=== PATIENT | female | born 1975 | race African-American/Black ===

== ENCOUNTER 2017-01-29 12:18 | Emergency (ER) | payer SELFPAY ==
--- NOTE | 2017-01-29 12:45 | ER Document Report ---
ED Medical Screen (RME) - General Chief Complaint: Chest Pain Stated Complaint: CHEST PAIN/RIGHT BREAST PAIN Time Seen by Provider: 01/29/17 12:43 Notes: Patient states that she came in because her encouraged her. She states her is concerned about the amount of time that she is tired and sleeping. She also states that she has been having both left and right-sided chest pain for the last week. She states that she has not been able to monitor her blood sugars because her meter is broken. TRAVEL OUTSIDE OF THE [place] IN LAST 30 DAYS: No - Related Data Allergies/Adverse Reactions: ampicillin Allergy (Verified 01/29/17 12:33) Penicillins Allergy (Verified 01/29/17 12:24) Past Medical History - Social History Frequency of alcohol use: None Drug Abuse: None - Past Medical History Cardiac Medical History: Reports: Hx Hypercholesterolemia, Hx Hypertension Endocrine Medical History: Reports: Hx Diabetes Mellitus Type 2 Renal/ Medical History: Denies: Hx Peritoneal Dialysis Past Surgical History: Reports: Hx Hysterectomy, Hx Tonsillectomy, Hx Tubal Ligation - Immunizations Hx Diphtheria, Pertussis, Tetanus Vaccination: Yes Physical Exam - Vital signs Vitals: Temp Pulse Resp BP Pulse Ox 97.5 F 93 18 119/90 H 98 01/29/17 12:23 01/29/17 12:23 01/29/17 12:23 01/29/17 12:23 01/29/17 12:23 Course - Vital Signs Vital signs: Temp Pulse Resp BP Pulse Ox 97.5 F 93 18 119/90 H 98 01/29/17 12:23 01/29/17 12:23 01/29/17 12:23 01/29/17 12:23 01/29/17 12:23
[2017-01-29 13:35] LABS: ABSOLUTE EOSINOPHILS # (AUTO) 0.2 10^3/uL (0.0-0.6); ABSOLUTE LYMPHOCYTES (AUTO) 2.3 10^3/uL (0.5-4.7); ABSOLUTE MONOCYTES (AUTO) 0.3 10^3/uL (0.1-1.4); ABSOLUTE NEUT (AUTO) 2.4 10^3/uL (1.7-8.2); BASOPHILS % (AUTO) 0.5 % (0-2); EOSINOPHILS % (AUTO) 4.5 % (0-6); HEMOGLOBIN 15.7 g/dL (12.0-15.5); HGB HCT DIFFERENCE 2.1; LYMPHOCYTES % (AUTO) 43.6 % (13-45); MEAN CORPUSCULAR HEMOGLOBIN 28.9 pg (27.0-33.4); MEAN CORPUSCULAR VOLUME 83 fl (80-97); RED BLOOD COUNT 5.44 10^6/uL (3.72-5.28); RED CELL DISTRIBUTION WIDTH 13.9 % (11.5-14.0); SEGMENTED NEUTROPHILS % (AUTO) 45.4 % (42-78); WHITE BLOOD COUNT 5.3 10^3/uL (4.0-10.5)
[2017-01-29 13:57] LABS: ALANINE AMINOTRANSFERASE 26 U/L (9-52); ALBUMIN 4.4 g/dL (3.5-5.0); ALKALINE PHOSPHATASE 109 U/L (38-126); ANION GAP 17 (5-19); ASPARTATE AMINO TRANSFERASE 17 U/L (14-36); BILIRUBIN,DIRECT 0.5 mg/dL (0.0-0.4); BILIRUBIN,TOTAL 0.7 mg/dL (0.2-1.3); BLOOD UREA NITROGEN 14 mg/dL (7-20); CALCIUM 9.9 mg/dL (8.4-10.2); CARBON DIOXIDE 24 mmol/L (22-30); CHLORIDE 93 mmol/L (98-107); CREATININE RESULT 0.82 mg/dL (0.52-1.25); POTASSIUM 3.6 mmol/L (3.6-5.0); SODIUM 133.6 mmol/L (137-145); TOTAL PROTEIN 8.1 g/dL (6.3-8.2)
[2017-01-29 14:09] LABS: GLUCOSE 562 mg/dL (75-110)
--- NOTE | 2017-01-29 14:12 | RADIOLOGY REPORT (SQ) ---
EXAM DESCRIPTION: CHEST PA/LAT COMPLETED DATE/TIME: 01/29/2017 1:19 pm REASON FOR STUDY: cp COMPARISON: 09/26/2015 TECHNIQUE: Frontal and lateral radiographic views of the chest acquired. NUMBER OF VIEWS: Two view. LIMITATIONS: None. FINDINGS: LUNGS AND PLEURA: No opacities, masses or pneumothorax. No pleural effusion. MEDIASTINUM AND HILAR STRUCTURES: No masses or contour abnormalities. HEART AND VASCULAR STRUCTURES: Heart normal size. No evidence for failure. BONES: No acute findings. HARDWARE: None in the chest. OTHER: No other significant finding. IMPRESSION: NO SIGNIFICANT RADIOGRAPHIC FINDING IN THE CHEST. TECHNICAL DOCUMENTATION: JOB ID: [id number] [employer]- All Rights Reserved
[2017-01-29 14:51] LABS: APPEARANCE,URINE CLEAR; BILIRUBIN,URINE NEGATIVE (NEGATIVE); GLUCOSE, URINE >=500 mg/dL (NEGATIVE); KETONES,URINE NEGATIVE (NEGATIVE); LEUKOCYTE ESTERASE,URINE NEGATIVE (NEGATIVE); NITRITE,URINE NEGATIVE (NEGATIVE); PROTEIN,URINE NEGATIVE (NEGATIVE); URINE SPECIFIC GRAVITY 1.028; UROBILINOGEN,URINE NEGATIVE mg/dL (<2.0)
--- NOTE | 2017-01-29 14:53 | ER Document Report ---
ED General - General Mode of Arrival: Ambulatory Information source: Patient TRAVEL OUTSIDE OF THE [place] IN LAST 30 DAYS: No - HPI Onset: Other - see narrative Onset/Duration: Persistent Quality of pain: Achy Similar symptoms previously: Yes <ALEXY ALAN - Last Filed: 01/29/17 14:53> <RASHI GILMAN - Last Filed: 01/29/17 17:26> - General Chief Complaint: Chest Pain Stated Complaint: CHEST PAIN/RIGHT BREAST PAIN Time Seen by Provider: 01/29/17 12:43 Notes: Patient is a 41-year-old female who presents to emergency department today with complaints of "breast pain". Patient states she has been having this pain for approximately 2 weeks and the at bedside states that the patient has been having the symptoms for approximately a year. Patient is a type II diabetic but is only currently taking Metformin. Patient was on metformin along with glipizide which were controlling her sugars well however she states her PCP changed the glipizide to free samples of Januvia and when the Januvia ran out she has not been put back on any other diabetes medications. Patient states she does not check her sugars frequently. (ALEXY ALAN) - Related Data Allergies/Adverse Reactions: ampicillin Allergy (Verified 01/29/17 12:33) Penicillins Allergy (Verified 01/29/17 12:24) Past Medical History - General Information source: Patient, [facility] Records - Social History Smoking Status: Never Smoker Cigarette use (# per day): No Frequency of alcohol use: None Drug Abuse: None Lives with: Family Family History: Reviewed & Not Pertinent Patient has suicidal ideation: No Patient has homicidal ideation: No - Past Medical History Cardiac Medical History: Reports: Hx Hypercholesterolemia, Hx Hypertension Endocrine Medical History: Reports: Hx Diabetes Mellitus Type 2 Past Surgical History: Reports: Hx Hysterectomy, Hx Tonsillectomy, Hx Tubal Ligation - Immunizations Hx Diphtheria, Pertussis, Tetanus Vaccination: Yes <ALEXY ALAN - Last Filed: 01/29/17 14:53> Review of Systems - Review of Systems Constitutional: See HPI, Other - feeling very worn out, sleeping almost all day EENT: No symptoms reported Cardiovascular: No symptoms reported Respiratory: No symptoms reported Gastrointestinal: No symptoms reported Genitourinary: No symptoms reported Female Genitourinary: No symptoms reported Musculoskeletal: See HPI, Other - right sided rib/breast pain Skin: No symptoms reported Hematologic/Lymphatic: No symptoms reported Neurological/Psychological: No symptoms reported -: Yes All other systems reviewed and negative <ALEXY ALAN - Last Filed: 01/29/17 14:53> Physical Exam <ALEXY ALAN - Last Filed: 01/29/17 14:53> <RASHI GILMAN - Last Filed: 01/29/17 17:26> - Vital signs Vitals: Temp Pulse Resp BP Pulse Ox 97.5 F 93 18 119/90 H 98 01/29/17 12:23 01/29/17 12:23 01/29/17 12:23 01/29/17 12:23 01/29/17 12:23 - Notes Notes: Physical Exam: General: Alert, appears well. HEENT: Normocephalic. Atraumatic. PERRL. Extraocular movements intact. Oropharynx clear. Neck: Supple. Non-tender. Respiratory: No respiratory distress. Clear and equal breath sounds bilaterally. Bilaterally chest wall tenderness with palpation under the breasts bilaterally. Cardiovascular: Regular rate and rhythm. Abdominal: Normal Inspection. Non-tender. No distension. Normal Bowel Sounds. Back: Non-tender. No deformity or step off. Extremities: Moves all four extremities. Upper extremities: Normal inspection. Normal ROM. Lower extremities: Normal inspection. No edema. Normal ROM. Neurological: Normal cognition. AAOx4. Normal speech. Psychological: Normal affect. Normal Mood. Skin: Warm. Dry. Normal color. (DAYANNA,ALEXY) Course - Laboratory Result Diagrams: 01/29/17 13:05 01/29/17 13:05 <DAYANNAALEXY - Last Filed: 01/29/17 14:53> - Laboratory Result Diagrams: 01/29/17 13:05 01/29/17 13:05 <RASHI GILMAN - Last Filed: 01/29/17 17:26> - Vital Signs Vital signs: Temp Pulse Resp BP Pulse Ox 97.5 F 93 18 119/90 H 98 01/29/17 12:23 01/29/17 12:23 01/29/17 12:23 01/29/17 12:23 01/29/17 12:23 - Laboratory Laboratory results interpreted by me: 01/29/17 01/29/1717 13:05 13:05 13:05 RBC 5.44 H Hgb 15.7 H Sodium 133.6 L Chloride 93 L Glucose 562 H* POC Glucose Hemoglobin A1c % Direct Bilirubin 0.5 H Urine Glucose (UA) >=500 H Urine Ascorbic Acid 20 H 01/29/17 01/29/17 13:05 17:02 RBC Hgb Sodium Chloride Glucose POC Glucose 269 H Hemoglobin A1c % 13.9 H Direct Bilirubin Urine Glucose (UA) Urine Ascorbic Acid Discharge <ALEXY ALAN - Last Filed: 01/29/17 14:53> <RASHI GILMAN - Last Filed: 01/29/17 17:26> - Discharge Clinical Impression: Poorly controlled diabetes mellitus, Chest wall pain Hyperglycemia due to type 2 diabetes mellitus 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 This is often caused by straining the muscles or joints in the chest during physical activity, direct trauma, coughing, or vigorous vomiting. Persons with arthritis are especially prone to this type of pain, due to inflammation of the cartilage joints near the breast bone. Occasionally, no cause can be found. Rest from strenuous physical activity. This kind of chest pain is usually made worse by movement of the chest. If the pain is new, and seems to be due to muscle strain, cold packs can help. Otherwise, apply gentle warmth to the painful area for 15 minutes every hour or two. You should contact the doctor immediately if things change. Further evaluation is needed if you develop a fever or cough, if the nature of the pain changes, or if you become short of breath. Hyperglycemia (High Blood Sugar): You have an abnormally high blood sugar. The medication you are taking is not controlling your blood sugars. You will be scheduled for further evaluation. It's very important that you follow through, to see if the blood sugar returns to normal levels. Uncontrolled high blood sugar leads to early heart disease, strokes, nerve damage, eye damage, and kidney damage. Call the physician if there is faintness, excess sleepiness, or very rapid breathing. ADD THE GLIPIZIDE TO THE METFORMIN YOUR ARE TAKING. CHECK YOUR BLOOD SUGARS REGULARLY. TAKE TYLENOL FOR THE CHEST WALL PAIN IF NEEDED. FOLLOW UP WITH A LOCAL MEDICAL DOCTOR TO MANAGE YOUR DIABETES--TAKE COPIES OF THE LAB WORK. RETURN TO THE EMERGENCY ROOM IF ANY NEW OR WORSENING SYMPTOMS. Prescriptions: Glipizide [Glucotrol 10 mg Tablet] 10 mg PO DAILY #30 tablet Scribe Attestation: 01/29/17 17:23 I personally performed the services described in the documentation, reviewed and edited the documentation which was dictated to the scribe in my presence, and it accurately records my words and actions. (RASHI GILMAN) Scribe Documentation - Scribe Written by Oswaldo:: Oswaldo Clifford, 01/29/2017 1507 acting as scribe for :: Dinesh <ALEXY ALAN - Last Filed: 01/29/17 14:53>
[2017-01-29] MEDS ORDERED: INSULIN REG, HUMAN 100 UNIT/ML 3 ML VIAL (PYX) IV ONE (14:54)
[2017-01-29] MEDS ORDERED: NORMAL SALINE 1000 ML 1,000 ML IV ONE (14:55)
[2017-01-29] MEDS ORDERED: POTASSIUM CHLORIDE 20 MEQ/15 ML UDCUP PO ONE (14:55)
[2017-01-29 18:18] VITALS: BP 121/85
--- NOTE | 2017-01-29 23:50 | EKG REPORT ---
SEVERITY:- ABNORMAL ECG - SINUS TACHYCARDIA LEFT ANTERIOR FASCICULAR BLOCK CONSIDER ANTERIOR INFARCT ABNORMAL T, CONSIDER ISCHEMIA, INFERIOR LEADS BORDERLINE PROLONGED QT INTERVAL : Confirmed by: Wilder Flores 29-Jan-2017 23:49:13
== END 2017-01-29 18:20 | disposition home or self-care (01) ==
LOC: ER 12:18
DX: E11.65 Type 2 diabetes mellitus with hyperglycemia (principal); R07.89 Other chest pain; N64.4 Mastodynia; Z79.899 Other long term (current) drug therapy
CPT/HCPCS: 93005; 99285; 36415; 82962; 85025; 81025; 80053; 81001; 84484; 83036; 71020; 93010; J1815; J7030

== ENCOUNTER 2017-06-01 13:32 | Emergency (ER) | payer SELFPAY ==
[2017-06-01] MEDS ORDERED: ONDANSETRON 4 MG TAB.RAPDIS PO ONE (14:16)
[2017-06-01] MEDS ORDERED: OXYCODONE-ACETAMINOPHEN 5-325 MG TABLET PO ONE ×2 (14:16→15:23)
--- NOTE | 2017-06-01 14:18 | ER Document Report ---
ED Medical Screen (RME) - General Chief Complaint: Flank Pain Stated Complaint: BACK PAIN, NAUSEA Time Seen by Provider: 06/01/17 14:14 Notes: 41-year-old female patient with [id number] diabetes reports right flank pain going into the right groin area. Burn some with urination. She has urine frequency but is on a diuretic. She reports fever with some nausea. There is no history of kidney stones. I have greeted and performed a rapid initial assessment of this patient. A comprehensive ED assessment and evaluation of the patient, analysis of test results and completion of the medical decision making process will be conducted by additional ED providers. TRAVEL OUTSIDE OF THE [place] IN LAST 30 DAYS: No - Related Data Allergies/Adverse Reactions: ampicillin Allergy (Verified 01/29/17 12:33) Penicillins Allergy (Verified 01/29/17 12:24) Home Medications: Current Home Medications Hydrochlorothiazide 1 tab PO DAILY 06/01/17 [History] Metformin HCl [Metformin HCl ER] 1 tab PO BID 06/01/17 [History] Past Medical History - Social History Frequency of alcohol use: None Drug Abuse: None - Past Medical History Cardiac Medical History: Reports: Hx Hypercholesterolemia, Hx Hypertension Endocrine Medical History: Reports: Hx Diabetes Mellitus Type 2 Renal/ Medical History: Denies: Hx Peritoneal Dialysis Past Surgical History: Reports: Hx Hysterectomy, Hx Tonsillectomy, Hx Tubal Ligation - Immunizations Hx Diphtheria, Pertussis, Tetanus Vaccination: Yes Physical Exam - Vital signs Vitals: Pulse BP 103 H 143/103 H 06/01/17 14:05 06/01/17 14:05 Course - Vital Signs Vital signs: Temp Pulse Resp BP Pulse Ox 98.9 F 103 H 18 135/104 H 97 06/01/17 14:06 06/01/17 14:06 06/01/17 14:06 06/01/17 14:06 06/01/17 14:06
--- NOTE | 2017-06-01 14:46 | ER Document Report ---
ED General - General Chief Complaint: Flank Pain Stated Complaint: BACK PAIN, NAUSEA Time Seen by Provider: 06/01/17 14:14 Mode of Arrival: Ambulatory Information source: Patient TRAVEL OUTSIDE OF THE [place] IN LAST 30 DAYS: No - Related Data Allergies/Adverse Reactions: ampicillin Allergy (Verified 01/29/17 12:33) Penicillins Allergy (Verified 01/29/17 12:24) Home Medications: Current Home Medications Hydrochlorothiazide 1 tab PO DAILY 06/01/17 [History] Metformin HCl [Metformin HCl ER] 1 tab PO BID 06/01/17 [History] Past Medical History - Social History Smoking Status: Never Smoker Frequency of alcohol use: None Drug Abuse: None Family History: Reviewed & Not Pertinent Patient has suicidal ideation: No Patient has homicidal ideation: No - Past Medical History Cardiac Medical History: Reports: Hx Hypercholesterolemia, Hx Hypertension Endocrine Medical History: Reports: Hx Diabetes Mellitus Type 2 Renal/ Medical History: Denies: Hx Peritoneal Dialysis Past Surgical History: Reports: Hx Hysterectomy, Hx Tonsillectomy, Hx Tubal Ligation - Immunizations Hx Diphtheria, Pertussis, Tetanus Vaccination: Yes Physical Exam - Vital signs Vitals: Pulse BP 103 H 143/103 H 06/01/17 14:05 06/01/17 14:05 Interpretation: Hypertensive, Tachycardic. No: Tachypneic Course - Re-evaluation Re-evalutation: 06/01/17 17:22 Patient states that she is feeling some better. Results of CT scan and laboratory testing discussed. Abdominal ultrasound scan still pending. - Vital Signs Vital signs: Temp Pulse Resp BP Pulse Ox 98.9 F 103 H 18 135/104 H 97 06/01/17 14:06 06/01/17 14:06 06/01/17 14:06 06/01/17 14:06 06/01/17 14:06 - Laboratory Result Diagrams: 06/01/17 15:20 06/01/17 15:20 Laboratory results interpreted by me: 06/01/17 06/01/17 14:24 15:20 Sodium 136.3 L Glucose 304 H Urine Glucose (UA) >=500 H Discharge - Discharge Clinical Impression: Colitis Cholelithiasis Qualifiers: Cholelithiasis location: gallbladder Cholecystitis presence: without cholecystitis Biliary obstruction: without biliary obstruction Qualified Code(s) : K80.20 - Calculus of gallbladder without cholecystitis without obstruction Condition: Stable Disposition: HOME, SELF-CARE Instructions: Colitis, Nonspecific ([facility]), Gallbladder Disease ([facility]) Additional Instructions: BLAND DIET, AVOID GREASY OR SPICY FOODS. MEDS DIRECTED. FOLLOW UP WITH YOUR PRIMARY CARE PROVIDER OR RETURN TO E.R.IF YOU START GETTING WORSE IN ANY WAY. Prescriptions: Levofloxacin [Levaquin 750 mg Tablet] 750 mg PO DAILY #14 tab Metronidazole 500 mg PO Q6 #28 tablet
[2017-06-01 14:55] LABS: APPEARANCE,URINE CLEAR; BILIRUBIN,URINE NEGATIVE (NEGATIVE); COLOR,URINE STRAW; GLUCOSE, URINE >=500 mg/dL (NEGATIVE); KETONES,URINE NEGATIVE (NEGATIVE); LEUKOCYTE ESTERASE,URINE NEGATIVE (NEGATIVE); NITRITE,URINE NEGATIVE (NEGATIVE); PROTEIN,URINE NEGATIVE (NEGATIVE); URINE SPECIFIC GRAVITY 1.024; UROBILINOGEN,URINE NEGATIVE mg/dL (<2.0)
[2017-06-01 15:36] LABS: ABSOLUTE BASOPHILS # (AUTO) 0.1 10^3/uL (0.0-0.2); ABSOLUTE EOSINOPHILS # (AUTO) 0.4 10^3/uL (0.0-0.6); ABSOLUTE LYMPHOCYTES (AUTO) 2.6 10^3/uL (0.5-4.7); ABSOLUTE MONOCYTES (AUTO) 0.4 10^3/uL (0.1-1.4); ABSOLUTE NEUT (AUTO) 3.6 10^3/uL (1.7-8.2); BASOPHILS % (AUTO) 1.3 % (0-2); EOSINOPHILS % (AUTO) 5.6 % (0-6); HEMATOCRIT 42.6 % (36.0-47.0); HEMOGLOBIN 14.8 g/dL (12.0-15.5); MEAN CORPUSCULAR HEMOGLOBIN 28.1 pg (27.0-33.4); MEAN CORPUSCULAR HGB CONC 34.7 g/dL (32.0-36.0); MEAN CORPUSCULAR VOLUME 81 fl (80-97); MONOCYTES % (AUTO) 5.2 % (3-13); PLATELET COUNT 303 10^3/uL (150-450); RED BLOOD COUNT 5.26 10^6/uL (3.72-5.28); RED CELL DISTRIBUTION WIDTH 13.8 % (11.5-14.0); SEGMENTED NEUTROPHILS % (AUTO) 50.9 % (42-78); TOTAL CELLS COUNTED % (AUTO) 100 %; WHITE BLOOD COUNT 7.1 10^3/uL (4.0-10.5)
[2017-06-01 15:44] LABS: ALANINE AMINOTRANSFERASE 31 U/L (9-52); ALBUMIN 3.9 g/dL (3.5-5.0); ALKALINE PHOSPHATASE 94 U/L (38-126); ANION GAP 12 (5-19); ASPARTATE AMINO TRANSFERASE 17 U/L (14-36); BILIRUBIN,DIRECT 0.3 mg/dL (0.0-0.4); BILIRUBIN,TOTAL 0.4 mg/dL (0.2-1.3); BLOOD UREA NITROGEN 15 mg/dL (7-20); CALCIUM 10.2 mg/dL (8.4-10.2); CARBON DIOXIDE 24 mmol/L (22-30); CHLORIDE 100 mmol/L (98-107); GLUCOSE 304 mg/dL (75-110); POTASSIUM 3.7 mmol/L (3.6-5.0); SODIUM 136.3 mmol/L (137-145); TOTAL PROTEIN 7.1 g/dL (6.3-8.2)
--- NOTE | 2017-06-01 15:53 | RADIOLOGY REPORT (SQ) ---
EXAM DESCRIPTION: CT LTD RENAL STONE PROTOCOL ON COMPLETED DATE/TIME: 06/01/2017 3:39 pm REASON FOR STUDY: ABD. PAIN, R. FLANK PAIN COMPARISON: None. TECHNIQUE: CT scan of the abdomen and pelvis performed without intravenous or oral contrast. Images reviewed with lung, soft tissue, and bone windows. Reconstructed coronal and sagittal MPR images revi ewed. All images stored on PACS. All CT scanners at this facility use dose modulation, iterative reconstruction, and/or weight based d osing when appropriate to reduce radiation dose to as low as reasonably achievable (ALARA). [facility]: Dose Right [facility]: CareDose [facility]: Dose Right [facility]: Teradose 4D [facility]: Aledia RADIATION DOSE: CT Rad equipment meets quality standard of care and radiation dose reduction techniq ues were employed. CTDIvol: 9.6 mGy. DLP: 552 mGy-cm.mGy. LIMITATIONS: Limited by lack of IV contrast. FINDINGS: LOWER CHEST: No significant findings. No nodules or infiltrates. NON-CONTRASTED LIVER, SPLEEN, ADRENALS: Evaluation limited by lack of IV contrast. No identified sign ificant masses. PANCREAS: No masses. No peripancreatic inflammatory changes. GALLBLADDER: No identified stones by CT criteria. No inflammatory changes to suggest cholecystitis. RIGHT KIDNEY AND URETER: No suspicious masses. Assessment limited by lack of IV contrast. No signif icant calcifications. No hydronephrosis or hydroureter. LEFT KIDNEY AND URETER: No suspicious masses. Assessment limited by lack of IV contrast. No signifi cant calcifications. No hydronephrosis or hydroureter. AORTA AND RETROPERITONEUM: No aneurysm. No retroperitoneal masses or adenopathy. BOWEL AND PERITONEAL CAVITY: There appears to be mild mucosal thickening and surrounding stranding in volving the terminal ileum and ascending colon compatible with infectious or inflammatory colitis. S mall and large bowel loops otherwise grossly normal. APPENDIX: Normal. PELVIS, BLADDER, AND ABDOMINAL WALL:No abnormal masses. No free fluid. Bladder normal. BONES: No significant findings. OTHER: No other significant finding. IMPRESSION: NO URINARY TRACT CALCULI OR HYDRONEPHROSIS. LIMITED BY LACK OF CONTRAST HOWEVER APPARENT INFLAMMATORY CHANGE INVOLVING THE DESCENDING COLON SUGGE STIVE OF INFECTIOUS OR INFLAMMATORY COLITIS. CORRELATE WITH CLINICAL HISTORY AND SYMPTOMS. COMMENT: Quality ID # [id number]: Final reports with documentation of one or more dose reduction techniques (e.g., Automated exposure control, adjustment of the mA and/or kV according to patient size, use of iterative reconstruction technique) TECHNICAL DOCUMENTATION: JOB ID: [id number] [employer]- All Rights Reserved
[2017-06-01] MEDS ORDERED: METRONIDAZOLE 500 MG TABLET PO ONE (16:57)
[2017-06-01] MEDS ORDERED: LEVOFLOXACIN 750 MG TABLET PO ONE (16:58)
--- NOTE | 2017-06-01 20:28 | RADIOLOGY REPORT (SQ) ---
EXAM DESCRIPTION: U/S ABDOMEN LIMITED W/O DOP COMPLETED DATE/TIME: 06/01/2017 8:19 pm REASON FOR STUDY: ABD. PAIN, R. FLANK PAIN COMPARISON: None. TECHNIQUE: Dynamic and static grayscale images acquired of the abdomen and recorded on PACS. Additio nal selected color Doppler and spectral images recorded. LIMITATIONS: Study is limited due to overlying bowel gas. FINDINGS: PANCREAS: The pancreas could not be visualized due to overlying bowel gas. LIVER: Echotexture is coarse with increased echogenicity consistent with fatty infiltration. LIVER VASCULATURE: Normal blood flow is identified in the portal vein GALLBLADDER: Gallstones are identified. Normal wall thickness. No pericholecystic fluid. ULTRASOUND-DETECTED BOLIVAR'S SIGN: Negative. INTRAHEPATIC DUCTS AND COMMON DUCT: CBD and intrahepatic ducts normal caliber. No filling defects. INFERIOR VENA CAVA: Normal flow. AORTA: The abdominal aorta was incompletely visualized due to overlying bowel gas. The visualized po rtions of the abdominal aorta showed no abdominal aortic ultrasound RIGHT KIDNEY: 11.5 cm in length. Normal echogenicity. No solid or suspicious masses. No hydron ephrosis. No calcifications. PERITONEAL AND RIGHT PLEURAL SPACE: No ascites or effusions. OTHER: No other significant finding. IMPRESSION: FATTY INFILTRATION OF THE LIVER. Gallstones are identified. Other findings as noted ab verónica TECHNICAL DOCUMENTATION: JOB ID: [id number] [employer]- All Rights Reserved
[2017-06-01] MEDS ORDERED: HYDROCODONE/ACETAMINOPHEN 5-325 MG (6 TAB/ER DISP) PO PRN (20:37)
[2017-06-01] MEDS ORDERED: ONDANSETRON ODT 4 MG TAB (6 TAB/ER DISP) PO PRN (20:37)
[2017-06-01 20:59] VITALS: BP 115/77
== END 2017-06-01 20:59 | disposition home or self-care (01) ==
LOC: ER 13:32
DX: K80.20 Calculus of gallbladder without cholecystitis without obstruction (principal); K52.9 Noninfective gastroenteritis and colitis, unspecified; R10.9 Unspecified abdominal pain; M54.9 Dorsalgia, unspecified; R11.0 Nausea; Z79.899 Other long term (current) drug therapy
CPT/HCPCS: 99284; 36415; 87040; 85025; 80053; 81001; 76705; 76380; S0119

== ENCOUNTER 2017-07-03 17:41 | Emergency (ER) | payer SELFPAY ==
[2017-07-03] MEDS ORDERED: ONDANSETRON HCL INJ/PF 4 MG/2 ML SDV IV ONE (18:36)
[2017-07-03] MEDS ORDERED: MORPHINE SULFATE 10 MG/ML INJ IV ONE (18:36)
[2017-07-03] MEDS ORDERED: NORMAL SALINE 1000 ML 1,000 ML IV ONE (18:36)
--- NOTE | 2017-07-03 18:49 | ER Document Report ---
ED General - General Chief Complaint: Abdominal Pain Stated Complaint: SIDE PAIN, BACK PAIN,DIARRHEA,NAUSEA Time Seen by Provider: 07/03/17 18:09 TRAVEL OUTSIDE OF THE [place] IN LAST 30 DAYS: No - HPI Patient complains to provider of: rory pain RUQ Notes: Patient states that she does have a history of gallstones she was here recently and had a CAT scan and ultrasound. Patient states that today she has right upper quadrant pain radiating to her back associated with nausea and inability to tolerate any foods. She denies fever. She did not get the flu shot.She is also diabetic and has not checked her sugar in a while. - Related Data Allergies/Adverse Reactions: ampicillin Allergy (Verified 01/29/17 12:33) Penicillins Allergy (Verified 01/29/17 12:24) Past Medical History - Social History Smoking Status: Never Smoker Frequency of alcohol use: None Drug Abuse: None Family History: Reviewed & Not Pertinent Patient has suicidal ideation: No Patient has homicidal ideation: No - Past Medical History Cardiac Medical History: Reports: Hx Hypercholesterolemia, Hx Hypertension Endocrine Medical History: Reports: Hx Diabetes Mellitus Type 2 Renal/ Medical History: Denies: Hx Peritoneal Dialysis Past Surgical History: Reports: Hx Hysterectomy, Hx Tonsillectomy, Hx Tubal Ligation - Immunizations Hx Diphtheria, Pertussis, Tetanus Vaccination: Yes Physical Exam - Vital signs Vitals: Temp Pulse Resp BP Pulse Ox 98.7 F 97 16 124/93 H 97 07/03/17 18:15 07/03/17 18:15 07/03/17 18:15 07/03/17 18:15 07/03/17 18:15 Course - Vital Signs Vital signs: Temp Pulse Resp BP Pulse Ox 98.7 F 97 16 124/93 H 97 07/03/17 18:15 07/03/17 18:15 07/03/17 18:15 07/03/17 18:15 07/03/17 18:15
[2017-07-03 19:08] LABS: ABSOLUTE BASOPHILS # (AUTO) 0.1 10^3/uL (0.0-0.2); ABSOLUTE EOSINOPHILS # (AUTO) 0.4 10^3/uL (0.0-0.6); ABSOLUTE LYMPHOCYTES (AUTO) 2.9 10^3/uL (0.5-4.7); ABSOLUTE MONOCYTES (AUTO) 0.4 10^3/uL (0.1-1.4); ABSOLUTE NEUT (AUTO) 3.9 10^3/uL (1.7-8.2); BASOPHILS % (AUTO) 0.7 % (0-2); EOSINOPHILS % (AUTO) 5.4 % (0-6); HEMATOCRIT 43.1 % (36.0-47.0); HEMOGLOBIN 14.8 g/dL (12.0-15.5); LYMPHOCYTES % (AUTO) 37.9 % (13-45); MEAN CORPUSCULAR HEMOGLOBIN 27.8 pg (27.0-33.4); MEAN CORPUSCULAR HGB CONC 34.3 g/dL (32.0-36.0); MEAN CORPUSCULAR VOLUME 81 fl (80-97); MONOCYTES % (AUTO) 5.8 % (3-13); PLATELET COUNT 361 10^3/uL (150-450); RED BLOOD COUNT 5.32 10^6/uL (3.72-5.28); RED CELL DISTRIBUTION WIDTH 14.1 % (11.5-14.0); SEGMENTED NEUTROPHILS % (AUTO) 50.2 % (42-78); TOTAL CELLS COUNTED % (AUTO) 100 %; WHITE BLOOD COUNT 7.7 10^3/uL (4.0-10.5)
[2017-07-03 19:24] LABS: ALANINE AMINOTRANSFERASE 29 U/L (9-52); ALBUMIN 4.5 g/dL (3.5-5.0); ALKALINE PHOSPHATASE 99 U/L (38-126); ANION GAP 13 (5-19); ASPARTATE AMINO TRANSFERASE 28 U/L (14-36); BILIRUBIN,DIRECT 0.2 mg/dL (0.0-0.4); BILIRUBIN,TOTAL 0.5 mg/dL (0.2-1.3); BLOOD UREA NITROGEN 11 mg/dL (7-20); CALCIUM 9.8 mg/dL (8.4-10.2); CARBON DIOXIDE 29 mmol/L (22-30); CHLORIDE 95 mmol/L (98-107); GLUCOSE 250 mg/dL (75-110); SODIUM 136.6 mmol/L (137-145); TOTAL PROTEIN 8.3 g/dL (6.3-8.2)
[2017-07-03 19:24] LABS: AMORPHOUS SEDIMENT,URINE TRACE /HPF; APPEARANCE,URINE SLIGHTLY-CLOUDY; BILIRUBIN,URINE NEGATIVE (NEGATIVE); COLOR,URINE YELLOW; GLUCOSE, URINE >=500 mg/dL (NEGATIVE); KETONES,URINE NEGATIVE (NEGATIVE); LEUKOCYTE ESTERASE,URINE NEGATIVE (NEGATIVE); NITRITE,URINE NEGATIVE (NEGATIVE); PROTEIN,URINE 100 mg/dL (NEGATIVE); URINE SPECIFIC GRAVITY 1.027; UROBILINOGEN,URINE NEGATIVE mg/dL (<2.0)
[2017-07-03 19:49] LABS: POTASSIUM 2.8 mmol/L (3.6-5.0)
[2017-07-03] MEDS ORDERED: POTASSIUM CHLORIDE 10 MEQ TABLET.SA PO ONE (19:50)
[2017-07-03] MEDS ORDERED: POTASSI CL 20 MEQ/50 ML RIDER 20 MEQ/50 ML RTUPB IV ONE (19:59)
[2017-07-03] MEDS ORDERED: RINGERS SOLUTION,LACTATED 1,000 ML IV ONE (20:43)
--- NOTE | 2017-07-03 21:28 | ER Document Report ---
ED General - General Chief Complaint: Abdominal Pain Stated Complaint: SIDE PAIN, BACK PAIN,DIARRHEA,NAUSEA Time Seen by Provider: 07/03/17 18:09 TRAVEL OUTSIDE OF THE [place] IN LAST 30 DAYS: No - HPI Patient complains to provider of: Abdominal pain nausea vomiting diarrhea Notes: Patient coming in for positive of breath abdominal pain nausea vomiting diarrhea. Patient states does have a history of gallstones. Patient denies any fevers. Multiple sick contacts. Patient resting comfortably upon my evaluation. - Related Data Allergies/Adverse Reactions: ampicillin Allergy (Verified 01/29/17 12:33) Penicillins Allergy (Verified 01/29/17 12:24) Past Medical History - Social History Smoking Status: Never Smoker Frequency of alcohol use: None Drug Abuse: None Family History: Reviewed & Not Pertinent Patient has suicidal ideation: No Patient has homicidal ideation: No - Past Medical History Cardiac Medical History: Reports: Hx Hypercholesterolemia, Hx Hypertension Endocrine Medical History: Reports: Hx Diabetes Mellitus Type 2 Renal/ Medical History: Denies: Hx Peritoneal Dialysis Past Surgical History: Reports: Hx Hysterectomy, Hx Tonsillectomy, Hx Tubal Ligation - Immunizations Hx Diphtheria, Pertussis, Tetanus Vaccination: Yes Review of Systems - Review of Systems Constitutional: No symptoms reported EENT: No symptoms reported Cardiovascular: No symptoms reported Respiratory: No symptoms reported Gastrointestinal: Abdominal pain, Diarrhea, Nausea, Vomiting Genitourinary: No symptoms reported Female Genitourinary: No symptoms reported Musculoskeletal: No symptoms reported Skin: No symptoms reported Hematologic/Lymphatic: No symptoms reported Neurological/Psychological: No symptoms reported Physical Exam - Vital signs Vitals: Temp Pulse Resp BP Pulse Ox 98.7 F 97 16 124/93 H 97 07/03/17 18:15 07/03/17 18:15 07/03/17 18:15 07/03/17 18:15 07/03/17 18:15 Interpretation: Normal - General General appearance: Appears well, Alert - HEENT Head: Normocephalic, Atraumatic Eyes: Normal Pupils: PERRL - Respiratory Respiratory status: No respiratory distress Chest status: Nontender Breath sounds: Normal Chest palpation: Normal - Cardiovascular Rhythm: Regular Heart sounds: Normal auscultation Murmur: No - Abdominal Inspection: Normal Distension: No distension Bowel sounds: Normal Tenderness: Nontender Organomegaly: No organomegaly - Back Back: Normal, Nontender - Extremities General upper extremity: Normal inspection, Nontender, Normal color, Normal ROM , Normal temperature General lower extremity: Normal inspection, Nontender, Normal color, Normal ROM , Normal temperature, Normal weight bearing. No: Mark's sign - Neurological Neuro grossly intact: Yes Cognition: Normal Orientation: AAOx4 Jose Coma Scale Eye Opening: Spontaneous [place] Coma Scale Verbal: Oriented [place] Coma Scale Motor: Obeys Commands Jose Coma Scale Total: 15 Speech: Normal Motor strength normal: LUE, RUE, LLE, RLE Sensory: Normal - Psychological Associated symptoms: Normal affect, Normal mood - Skin Skin Temperature: Warm Skin Moisture: Dry Skin Color: Normal Course - Re-evaluation Re-evalutation: 07/04/17 23:23 Laboratory studies showed a low potassium which patient was able tolerate oral potassium tablets. Otherwise labs revised not reveal any signs suggestive of biliary obstruction patient will be discharged home. The patient presents with abdominal pain without signs of peritonitis or other life-threatening or serious etiology. The patient appears stable for discharge and has been instructed to return immediately if the symptoms worsen in any way, or in 8- 12hr if not improved for re-evaluation. The patient has been instructed to return if the symptoms worsen or change in any way. - Vital Signs Vital signs: Temp Pulse Resp BP Pulse Ox 98.7 F 97 15 109/80 98 07/03/17 18:15 07/03/17 18:15 07/03/17 23:04 07/03/17 23:04 07/03/17 23:04 - Laboratory Result Diagrams: 07/03/17 19:00 07/03/17 19:00 Laboratory results interpreted by me: 07/03/17 07/03/17 07/03/17 17:50 19:00 19:00 RBC 5.32 H RDW 14.1 H Sodium 136.6 L Potassium 2.8 L* Chloride 95 L Glucose 250 H Total Protein 8.3 H Urine Protein 100 H Urine Glucose (UA) >=500 H Discharge - Discharge Clinical Impression: Abdominal pain, Nausea vomiting and diarrhea Condition: Good Disposition: HOME, SELF-CARE Instructions: Abdominal Pain ([facility]), Gastroenteritis (adult) ([facility]) Additional Instructions: Your laboratory studies today. Shows a low potassium at 2.8. We replaced your potassium tonight orally and IV.I believe her symptoms are more likely related to a GI virus. Laboratory studies otherwise not show any inflammation or gallbladder dysfunction. To aid with your gallbladder pain I would recommend eating foods that are not fatty greasy Take medication as prescribed return to ER symptoms worsen. Prescriptions: Dicyclomine HCl [Bentyl 20 mg Tablet] 20 mg PO QID #30 tablet Ondansetron [Zofran Odt] 4 mg PO Q6 PRN #30 tab.rapdis PRN Reason: For Nausea/Vomiting Promethazine HCl [Phenergan 25 mg Tablet] 25 mg PO Q6 #30 tablet Forms: Return to Work
[2017-07-03 23:14] VITALS: BP 109/80
--- NOTE | 2017-07-04 08:00 | EKG REPORT ---
SEVERITY:- ABNORMAL ECG - SINUS RHYTHM LEFT ANTERIOR FASCICULAR BLOCK BORDERLINE R WAVE PROGRESSION, ANTERIOR LEADS BORDERLINE T ABNORMALITIES, INFERIOR LEADS BORDERLINE PROLONGED QT INTERVAL : Confirmed by: Tyrone Lieberman MD 04-Jul-2017 07:58:55
== END 2017-07-03 23:14 | disposition home or self-care (01) ==
LOC: ER 17:41
DX: R10.9 Unspecified abdominal pain (principal); R19.7 Diarrhea, unspecified; R11.2 Nausea with vomiting, unspecified; M54.9 Dorsalgia, unspecified
CPT/HCPCS: 93005; 99284; 96361; 96375; 96365; 96367; 36415; 83690; 85025; 80053; 81001; 93010; J2270; J2405; J3480; J7030; J7120

== ENCOUNTER 2017-08-16 16:02 | Emergency (ER) | payer SELFPAY ==
--- NOTE | 2017-08-16 16:49 | ER Document Report ---
ED Medical Screen (RME) - General Chief Complaint: General Weakness Stated Complaint: WEAKNESS Time Seen by Provider: 08/16/17 16:41 Information source: Patient Notes: 41 y.o female with a PMHx of DM for which she take medications presents to the ED with generalized weakness, cough and urinary incontinence. Pt states that she has felt weak with a cough since August 06 and went to the doctor and was given steroids which she finished 3 days ago. She also notes some N/V/D a few days ago when her urinary incontinence began. She states that she has been taking her diabetes medications as prescribed. I have greeted and performed a rapid initial assessment of the patient. A comprehensive ED assessment and evaluation of the patient, analysis of test results, and completion of the medical decision making process will be conducted by additional ED providers. TRAVEL OUTSIDE OF THE [place] IN LAST 30 DAYS: No - Related Data Allergies/Adverse Reactions: ampicillin Allergy (Verified 01/29/17 12:33) Penicillins Allergy (Verified 01/29/17 12:24) Past Medical History - General Information source: Patient - Past Medical History Cardiac Medical History: Reports: Hx Hypercholesterolemia, Hx Hypertension Endocrine Medical History: Reports: Hx Diabetes Mellitus Type 2 Renal/ Medical History: Denies: Hx Peritoneal Dialysis Past Surgical History: Reports: Hx Hysterectomy, Hx Tonsillectomy, Hx Tubal Ligation - Immunizations Hx Diphtheria, Pertussis, Tetanus Vaccination: Yes Review of Systems - Review of Systems Constitutional: See HPI, Weakness EENT: No symptoms reported Cardiovascular: No symptoms reported Respiratory: See HPI, Cough Gastrointestinal: See HPI, Nausea, Vomiting Genitourinary: See HPI, Incontinence Female Genitourinary: See HPI Musculoskeletal: No symptoms reported Skin: No symptoms reported Hematologic/Lymphatic: No symptoms reported Neurological/Psychological: No symptoms reported -: Yes All other systems reviewed and negative Physical Exam - Vital signs Vitals: Temp Pulse Resp BP Pulse Ox 98.5 F 101 H 20 135/93 H 100 08/16/17 16:17 08/16/17 16:17 08/16/17 16:17 08/16/17 16:17 08/16/17 16:17 - Notes Notes: Physical Exam: General: Alert, appears well. HEENT: Normocephalic. Atraumatic. PERRLA. Extraocular movements intact. Oropharynx clear. Neck: Supple. Respiratory: No respiratory distress. Mild wheezing. Abdominal: Normal Inspection. No distension. Extremities: Moves all four extremities. Neurological: Normal cognition. AAOx4. Normal speech. Psychological: Normal affect. Normal Mood. Skin: Warm. Dry. Normal color. Course - Vital Signs Vital signs: Temp Pulse Resp BP Pulse Ox 98.5 F 101 H 20 135/93 H 100 08/16/17 16:17 08/16/17 16:17 08/16/17 16:17 08/16/17 16:17 08/16/17 16:17 Scribe Documentation - Scribe Written by Scrcherelle:: Itzel Wilson, Oswaldo 08/16/17 1245 acting as scribe for :: Raghu
--- NOTE | 2017-08-16 17:19 | ER Document Report ---
ED General - General Chief Complaint: General Weakness Stated Complaint: WEAKNESS Time Seen by Provider: 08/16/17 16:41 Notes: 41-year-old -[place] female. History of diabetes. Recent treatment with steroids for bronchitis. States that her cough is still there but getting better. Has been feeling increasingly weak and tired. Blood sugar has been read on home monitor as "high". It was wiped out. Only she wants to sleep. Had this happen once before and had to be hospitalized. Any chest pain. Denies any significant abdominal pain but has been having some burps that smell like eggs. May be her gallbladder has issues but denies any significant abdominal pain at this time. Patient also complaining of having some incontinence. States that she sometimes has incontinence when she sneezes or coughs but here recently the incontinence has gotten worse. Denies any burning or dysuria though. TRAVEL OUTSIDE OF THE [place] IN LAST 30 DAYS: No - HPI Onset: Other - 2 weeks ago Onset/Duration: Gradual Severity: Mild Associated symptoms: Weakness, Other - Tired, lack of energy, cough - Related Data Allergies/Adverse Reactions: ampicillin Allergy (Verified 01/29/17 12:33) Penicillins Allergy (Verified 01/29/17 12:24) Past Medical History - General Information source: Patient - Social History Smoking Status: Never Smoker Cigarette use (# per day): No Chew tobacco use (# tins/day): No Drug Abuse: None Lives with: Spouse/Significant other Family History: Reviewed & Not Pertinent Patient has suicidal ideation: No Patient has homicidal ideation: No - Past Medical History Cardiac Medical History: Reports: Hx Hypercholesterolemia, Hx Hypertension Endocrine Medical History: Reports: Hx Diabetes Mellitus Type 2 Renal/ Medical History: Denies: Hx Peritoneal Dialysis Past Surgical History: Reports: Hx Hysterectomy, Hx Tonsillectomy, Hx Tubal Ligation - Immunizations Hx Diphtheria, Pertussis, Tetanus Vaccination: Yes Review of Systems - Review of Systems Constitutional: Malaise, Weakness. denies: Chills, Diaphoresis, Fever EENT: denies: Eye pain, Eye discharge, Nose pain, Nose discharge, Throat pain, Throat swelling Cardiovascular: denies: Chest pain, Palpitations, Heart racing Respiratory: Cough. denies: Hurts to breathe, Short of breath, Wheezing Gastrointestinal: denies: Abdominal pain, Diarrhea, Nausea, Vomiting Genitourinary: Incontinence. denies: Burning, Dysuria, Discharge Female Genitourinary: denies: Vaginal discharge, Vaginal bleeding Musculoskeletal: denies: Back pain, Gout, Joint pain Skin: denies: Dryness, Lesions, Rash Hematologic/Lymphatic: denies: Anemia, Blood clots, Swollen glands Neurological/Psychological: Weakness. denies: Confusion, Dementia, Depression, Sensory change Physical Exam - Vital signs Vitals: Temp Pulse Resp BP Pulse Ox 98.5 F 101 H 20 135/93 H 100 08/16/17 16:17 08/16/17 16:17 08/16/17 16:17 08/16/17 16:17 08/16/17 16:17 Interpretation: Normal - General General appearance: Appears well, Alert - HEENT Head: Normocephalic, Atraumatic Eyes: Normal Pupils: PERRL - Respiratory Respiratory status: No respiratory distress Chest status: Nontender Breath sounds: Nonproductive cough Chest palpation: Normal - Cardiovascular Rhythm: Regular Heart sounds: Normal auscultation Murmur: No - Abdominal Inspection: Normal Distension: No distension Bowel sounds: Normal Tenderness: Nontender Organomegaly: No organomegaly - Back Back: Normal, Nontender - Extremities General upper extremity: Normal inspection, Nontender, Normal color, Normal ROM , Normal temperature General lower extremity: Normal inspection, Nontender, Normal color, Normal ROM , Normal temperature, Normal weight bearing. No: Mark's sign - Neurological Neuro grossly intact: Yes Cognition: Normal Orientation: AAOx4 [place] Coma Scale Eye Opening: Spontaneous [place] Coma Scale Verbal: Oriented [place] Coma Scale Motor: Obeys Commands [place] Coma Scale Total: 15 Speech: Normal Motor strength normal: LUE, RUE, LLE, RLE Sensory: Normal - Psychological Associated symptoms: Normal affect, Normal mood - Skin Skin Temperature: Warm Skin Moisture: Dry Skin Color: Normal Course - Re-evaluation Re-evalutation: 08/16/17 18:05 EKG unchanged from prior. Urinalysis results consistent with possible UTI. This could be causing a lot of her symptoms especially in the setting of diabetes with hyperglycemia. She does have some ketones in her urine so adding a venous blood gas at this time to go along with the chemistry panel to make sure she is not in DKA. Everything else looks fairly unremarkable we will give her a couple liters of fluid to dilute the blood sugar. Will give her some antibiotics. - Vital Signs Vital signs: Temp Pulse Resp BP Pulse Ox 98.5 F 101 H 14 128/89 H 97 08/16/17 16:17 08/16/17 16:17 08/16/17 19:01 08/16/17 19:01 08/16/17 19:01 - Laboratory Result Diagrams: 08/16/17 17:49 08/16/17 17:49 Laboratory results interpreted by me: 08/16/17 08/16/17 08/16/17 16:38 16:40 17:49 VBG pH Sodium 136.0 L Glucose 348 H POC Glucose 392 H Urine Glucose (UA) >=500 H Urine Ketones TRACE H Urine Blood SMALL H Ur Leukocyte Esterase LARGE H 08/16/17 18:04 VBG pH 7.43 H Sodium Glucose POC Glucose Urine Glucose (UA) Urine Ketones Urine Blood Ur Leukocyte Esterase - EKG Interpretation by Me EKG shows normal: [place], Intervals, QRS Complexes, ST-T Waves Rate: Tachycardia When compared to previous EKG there are: No significant change, Other - No EKG changes as compared to previous EKG 07/03/2017. Discharge - Discharge Clinical Impression: UTI (urinary tract infection) Qualifiers: Urinary tract infection type: acute cystitis Hematuria presence: without hematuria Qualified Code(s): N30.00 - Acute cystitis without hematuria Hyperglycemia due to type 2 diabetes mellitus Qualifiers: Diabetes mellitus care home insulin use: without exterminator helper use Qualified Code(s ): E11.65 - Type 2 diabetes mellitus with hyperglycemia Condition: Good Disposition: HOME, SELF-CARE Instructions: Trimethoprim-Sulfa ([facility]), Urinary Tract Infection ([facility]), Hyperglycemia ([facility]) Prescriptions: Sulfamethoxazole/Trimethoprim [Bactrim Ds Tablet] 1 each PO BID 7 Days #14 tablet
--- NOTE | 2017-08-16 17:31 | RADIOLOGY REPORT (SQ) ---
EXAM DESCRIPTION: CHEST PA/LAT COMPLETED DATE/TIME: 08/16/2017 5:21 pm REASON FOR STUDY: cough/congestion COMPARISON: Chest x-ray 01/29/2017. EXAM PARAMETERS: NUMBER OF VIEWS: two views TECHNIQUE: Digital Frontal and Lateral radiographic views of the chest acquired. RADIATION DOSE: NA LIMITATIONS: none FINDINGS: LUNGS AND PLEURA: No consolidation, pneumothorax or pleural effusion. MEDIASTINUM AND HILAR STRUCTURES: No masses or contour abnormalities. HEART AND VASCULAR STRUCTURES: Heart normal size. No evidence for failure. BONES: No acute findings. HARDWARE: None in the chest. IMPRESSION: No acute radiographic finding in the chest. TECHNICAL DOCUMENTATION: JOB ID: [id number] 2010 [employer]- All Rights Reserved Reading location - IP/workstation name: [email or web address]
[2017-08-16 17:40] LABS: APPEARANCE,URINE CLOUDY; BILIRUBIN,URINE NEGATIVE (NEGATIVE); COLOR,URINE YELLOW; GLUCOSE, URINE >=500 mg/dL (NEGATIVE); KETONES,URINE TRACE mg/dL (NEGATIVE); LEUKOCYTE ESTERASE,URINE LARGE (NEGATIVE); NITRITE,URINE NEGATIVE (NEGATIVE); PROTEIN,URINE NEGATIVE (NEGATIVE); URINE SPECIFIC GRAVITY 1.035; UROBILINOGEN,URINE NEGATIVE mg/dL (<2.0)
[2017-08-16 18:02] LABS: ABSOLUTE EOSINOPHILS # (AUTO) 0.4 10^3/uL (0.0-0.6); ABSOLUTE LYMPHOCYTES (AUTO) 2.1 10^3/uL (0.5-4.7); ABSOLUTE MONOCYTES (AUTO) 0.4 10^3/uL (0.1-1.4); ABSOLUTE NEUT (AUTO) 4.9 10^3/uL (1.7-8.2); BASOPHILS % (AUTO) 0.5 % (0-2); EOSINOPHILS % (AUTO) 5.5 % (0-6); HEMATOCRIT 40.8 % (36.0-47.0); HEMOGLOBIN 13.9 g/dL (12.0-15.5); LYMPHOCYTES % (AUTO) 26.8 % (13-45); MEAN CORPUSCULAR HEMOGLOBIN 27.5 pg (27.0-33.4); MEAN CORPUSCULAR HGB CONC 34.2 g/dL (32.0-36.0); MEAN CORPUSCULAR VOLUME 80 fl (80-97); MONOCYTES % (AUTO) 4.8 % (3-13); PLATELET COUNT 334 10^3/uL (150-450); RED BLOOD COUNT 5.07 10^6/uL (3.72-5.28); SEGMENTED NEUTROPHILS % (AUTO) 62.4 % (42-78); TOTAL CELLS COUNTED % (AUTO) 100 %; WHITE BLOOD COUNT 7.8 10^3/uL (4.0-10.5)
[2017-08-16] MEDS: NORMAL SALINE 1000 ML 1,000 ML IV PRN ×2 (18:04→18:06)
[2017-08-16] MEDS ORDERED: SULFAMETHOXAZOLE/TRIMETHOPRIM 800-160 MG TABLET PO ONE (18:06)
[2017-08-16] MEDS ORDERED: ONDANSETRON 4 MG TAB.RAPDIS PO PRN (18:06)
[2017-08-16 18:26] LABS: ALANINE AMINOTRANSFERASE 42 U/L (9-52); ALBUMIN 3.9 g/dL (3.5-5.0); ALKALINE PHOSPHATASE 107 U/L (38-126); ANION GAP 12 (5-19); ASPARTATE AMINO TRANSFERASE 30 U/L (14-36); BILIRUBIN,DIRECT 0.4 mg/dL (0.0-0.4); BILIRUBIN,TOTAL 0.7 mg/dL (0.2-1.3); BLOOD UREA NITROGEN 8 mg/dL (7-20); CALCIUM 9.3 mg/dL (8.4-10.2); CARBON DIOXIDE 23 mmol/L (22-30); CHLORIDE 101 mmol/L (98-107); GLUCOSE 348 mg/dL (75-110); POTASSIUM 3.7 mmol/L (3.6-5.0); TOTAL PROTEIN 7.2 g/dL (6.3-8.2)
[2017-08-16] MEDS ORDERED: INSULIN REG, HUMAN 100 UNIT/ML 3 ML VIAL (PYX) SUBCUT ONE (18:32)
[2017-08-16 18:49] LABS: VENOUS BLOOD BASE EXCESS 0.8 mmol/L; VENOUS BLOOD PCO2 38.9 mmHg (35-63); VENOUS BLOOD PH 7.43 (7.30-7.42)
[2017-08-16 19:12] VITALS: BP 128/89
--- NOTE | 2017-08-16 23:49 | EKG REPORT ---
SEVERITY:- ABNORMAL ECG - SINUS TACHYCARDIA LEFT ANTERIOR FASCICULAR BLOCK BORDERLINE R WAVE PROGRESSION, ANTERIOR LEADS ABNORMAL T, CONSIDER ISCHEMIA, INFERIOR LEADS no change : Confirmed by: Tyrone Lieberman MD 16-Aug-2017 23:48:48
== END 2017-08-16 19:52 | disposition home or self-care (01) ==
LOC: ER 16:02
DX: N30.00 Acute cystitis without hematuria (principal); E11.65 Type 2 diabetes mellitus with hyperglycemia; R53.1 Weakness; E78.00 Pure hypercholesterolemia, unspecified
CPT/HCPCS: 93005; 99285; 96360; 36415; 87086; 82962; 84703; 85025; 87088; 80053; 81001; 84484; 82803; 71046; 93010; S0119; J1815; J7030

== ENCOUNTER 2017-12-21 18:16 | Emergency (ER) | payer SELFPAY ==
[2017-12-21] MEDS ORDERED: NORMAL SALINE 1000 ML 1,000 ML IV ONE ×2 (19:03→22:34)
[2017-12-21] MEDS ORDERED: INSULIN REG, HUMAN 100 UNIT/ML 3 ML VIAL (PYX) SUBCUT ONE (19:03)
--- NOTE | 2017-12-21 19:04 | ER Document Report ---
ED Medical Screen (RME) - General Chief Complaint: Dizziness Stated Complaint: DIZZY,RIB PAIN Time Seen by Provider: 12/21/17 19:02 TRAVEL OUTSIDE OF THE [place] IN LAST 30 DAYS: No - HPI Notes: 12/21/17 19:04 Sugar greater than 550 here [place] [employer]. Patient states feeling off balance pain in her feet history of neuropathy and pain in the right side of her chest going into the right breast. Patient states has a history of gallstones however states nausea no vomiting. Patient no obvious distress upon my evaluation. - Related Data Allergies/Adverse Reactions: ampicillin Allergy (Verified 01/29/17 12:33) Penicillins Allergy (Verified 01/29/17 12:24) Past Medical History - Social History Chew tobacco use (# tins/day): No Frequency of alcohol use: None - Past Medical History Cardiac Medical History: Reports: Hx Hypercholesterolemia, Hx Hypertension Endocrine Medical History: Reports: Hx Diabetes Mellitus Type 2 Renal/ Medical History: Denies: Hx Peritoneal Dialysis Past Surgical History: Reports: Hx Hysterectomy, Hx Tonsillectomy, Hx Tubal Ligation - Immunizations Hx Diphtheria, Pertussis, Tetanus Vaccination: Yes Review of Systems - Review of Systems Constitutional: Other - Multiple complaints Physical Exam - Vital signs Vitals: Temp Pulse Resp BP Pulse Ox 99.2 F 103 H 20 128/89 H 98 12/21/17 18:37 12/21/17 18:37 12/21/17 18:37 12/21/17 18:37 12/21/17 18:37 - Respiratory Respiratory status: No respiratory distress Breath sounds: Normal Chest palpation: Normal Course - Vital Signs Vital signs: Temp Pulse Resp BP Pulse Ox 99.2 F 103 H 20 128/89 H 98 12/21/17 18:37 12/21/17 18:37 12/21/17 18:37 12/21/17 18:37 12/21/17 18:37
[2017-12-21 19:46] LABS: APPEARANCE,URINE CLEAR; BILIRUBIN,URINE NEGATIVE (NEGATIVE); COLOR,URINE STRAW; GLUCOSE, URINE >=500 mg/dL (NEGATIVE); KETONES,URINE NEGATIVE (NEGATIVE); LEUKOCYTE ESTERASE,URINE NEGATIVE (NEGATIVE); NITRITE,URINE NEGATIVE (NEGATIVE); PROTEIN,URINE NEGATIVE (NEGATIVE); URINE SPECIFIC GRAVITY 1.026; UROBILINOGEN,URINE NEGATIVE mg/dL (<2.0)
[2017-12-21 19:55] LABS: ABSOLUTE EOSINOPHILS # (AUTO) 0.2 10^3/uL (0.0-0.6); ABSOLUTE LYMPHOCYTES (AUTO) 2.5 10^3/uL (0.5-4.7); ABSOLUTE MONOCYTES (AUTO) 0.4 10^3/uL (0.1-1.4); ABSOLUTE NEUT (AUTO) 3.2 10^3/uL (1.7-8.2); BASOPHILS % (AUTO) 0.5 % (0-2); EOSINOPHILS % (AUTO) 2.5 % (0-6); HEMATOCRIT 43.1 % (36.0-47.0); HEMOGLOBIN 14.9 g/dL (12.0-15.5); LYMPHOCYTES % (AUTO) 39.7 % (13-45); MEAN CORPUSCULAR HEMOGLOBIN 27.9 pg (27.0-33.4); MEAN CORPUSCULAR HGB CONC 34.5 g/dL (32.0-36.0); MEAN CORPUSCULAR VOLUME 81 fl (80-97); MONOCYTES % (AUTO) 6.6 % (3-13); PLATELET COUNT 335 10^3/uL (150-450); RED BLOOD COUNT 5.32 10^6/uL (3.72-5.28); RED CELL DISTRIBUTION WIDTH 14.2 % (11.5-14.0); SEGMENTED NEUTROPHILS % (AUTO) 50.7 % (42-78); TOTAL CELLS COUNTED % (AUTO) 100 %; WHITE BLOOD COUNT 6.3 10^3/uL (4.0-10.5)
[2017-12-21 19:57] LABS: VENOUS BLOOD BASE EXCESS 2.8 mmol/L; VENOUS BLOOD HCO3 27.6 mmol/L (20-32); VENOUS BLOOD PCO2 43.2 mmHg (35-63); VENOUS BLOOD PH 7.42 (7.30-7.42)
[2017-12-21 20:21] LABS: ALANINE AMINOTRANSFERASE 21 U/L (9-52); ALBUMIN 4.3 g/dL (3.5-5.0); ALKALINE PHOSPHATASE 102 U/L (38-126); ANION GAP 17 (5-19); ASPARTATE AMINO TRANSFERASE 16 U/L (14-36); BILIRUBIN,DIRECT 0.4 mg/dL (0.0-0.4); BILIRUBIN,TOTAL 0.7 mg/dL (0.2-1.3); BLOOD UREA NITROGEN 16 mg/dL (7-20); CALCIUM 9.7 mg/dL (8.4-10.2); CARBON DIOXIDE 25 mmol/L (22-30); CHLORIDE 90 mmol/L (98-107); LIPASE 159.7 U/L (23-300); SODIUM 132.4 mmol/L (137-145); TOTAL PROTEIN 8.2 g/dL (6.3-8.2)
[2017-12-21 20:31] LABS: GLUCOSE 581 mg/dL (75-110)
--- NOTE | 2017-12-21 20:40 | RADIOLOGY REPORT (SQ) ---
EXAM DESCRIPTION: RIBS RIGHT W/PA CHEST COMPLETED DATE/TIME: 12/21/2017 8:13 pm REASON FOR STUDY: right rib pain COMPARISON: Chest x-ray 08/16/2017. TECHNIQUE: Frontal view of the chest and additional views of the right ribs acquired. NUMBER OF VIEWS: Three view. LIMITATIONS: None. FINDINGS: FRONTAL CXR: No pneumothorax. No pleural effusion. No atelectasis or infiltrates. RIBS: No displaced right rib fractures. IMPRESSION: No pneumothorax. No displaced right rib fractures. COMMENT: SITE OF TRAUMA/COMPLAINT MARKED/STAMP COMPLETED: NO. TECHNICAL DOCUMENTATION: JOB ID: [id number] 2010 [employer]- All Rights Reserved Reading location - IP/workstation name: [email or web address]
[2017-12-21] MEDS ORDERED: INSULIN GLARGINE,HUM.REC.ANLOG 1,000 UNIT/10 ML UNIT SUBCUT ONE (22:18)
--- NOTE | 2017-12-21 22:23 | ER Document Report ---
ED General - General Chief Complaint: Dizziness Stated Complaint: DIZZY,RIB PAIN Time Seen by Provider: 12/21/17 19:02 Notes: The patient is a 42 yo female, IDDM, peripheral neuropathy, presents with multiple complaints. Her blood sugars have been running higher for the last 2 weeks and she is taking her insulin as directed. In addition, she is having right lateral rib and breast pain that is a shooting sensation. Due to her peripheral neuropathy, she feels slightly off balance when she walks. She does not have a primary care physician and is in the process of obtaining another one. Patient denies nausea, vomiting, abdominal pain, fevers, back pain, urinary symptoms, headache, focal weakness, numbness, tingling or blurry vision. TRAVEL OUTSIDE OF THE [place] IN LAST 30 DAYS: No - Related Data Allergies/Adverse Reactions: ampicillin Allergy (Verified 01/29/17 12:33) Penicillins Allergy (Verified 01/29/17 12:24) Past Medical History - General Information source: Patient - Social History Smoking Status: Never Smoker Chew tobacco use (# tins/day): No Frequency of alcohol use: None Family History: Reviewed & Not Pertinent Patient has suicidal ideation: No Patient has homicidal ideation: No - Past Medical History Cardiac Medical History: Reports: Hx Hypercholesterolemia, Hx Hypertension Endocrine Medical History: Reports: Hx Diabetes Mellitus Type 2 Renal/ Medical History: Denies: Hx Peritoneal Dialysis Past Surgical History: Reports: Hx Hysterectomy, Hx Tonsillectomy, Hx Tubal Ligation - Immunizations Hx Diphtheria, Pertussis, Tetanus Vaccination: Yes Review of Systems - Review of Systems Notes: REVIEW OF SYSTEMS: CONSTITUTIONAL: -fevers, -chills EENT: -eye pain, -difficulty swallowing, -nasal congestion CARDIOVASCULAR: +right lateral chest pain, -syncope. RESPIRATORY: -cough, -SOB GASTROINTESTINAL: -abdominal pain, -nausea, -vomiting, -diarrhea GENITOURINARY: -dysuria, -hematuria MUSCULOSKELETAL: -back pain, -neck pain SKIN: +back rash HEMATOLOGIC: -easy bruising or bleeding. LYMPHATIC: -swollen, enlarged glands. NEUROLOGICAL: -altered mental status or loss of consciousness, -headache, + peripheral neuropathy PSYCHIATRIC: -anxiety, -depression. ALL OTHER SYSTEMS REVIEWED AND NEGATIVE. Physical Exam - Vital signs Vitals: Temp Pulse Resp BP Pulse Ox 99.2 F 103 H 20 128/89 H 98 12/21/17 18:37 12/21/17 18:37 12/21/17 18:37 12/21/17 18:37 12/21/17 18:37 - Notes Notes: PHYSICAL EXAMINATION: GENERAL: Well-appearing, well-nourished and in no acute distress. HEAD: Atraumatic, normocephalic. EYES: Pupils equal round and reactive to light, extraocular movements intact, sclera anicteric, conjunctiva are normal. ENT: nares patent, oropharynx clear without exudates. Moist mucous membranes. NECK: Normal range of motion, supple without lymphadenopathy LUNGS: Breath sounds clear to auscultation bilaterally and equal. No wheezes rales or rhonchi. HEART: Regular rate and rhythm without murmurs CHEST WALL: Right lateral chest wall tenderness. ABDOMEN: Soft, nontender, normoactive bowel sounds. No guarding, no rebound. No masses appreciated. EXTREMITIES: Normal range of motion, no pitting or edema. No cyanosis. NEUROLOGICAL: Cranial nerves grossly intact. Normal speech, normal gait. Normal sensory and motor exams. PSYCH: Normal mood, normal affect. SKIN: Dry erythematous rash over right posterior mid back in right T10 dermatone. No vesicles. Course - Re-evaluation Re-evalutation: Patient with a sharp shooting sensation in the right T10 dermatome. She does have a erythematous dry rash over her right back in this region, but no vesicles. This could be an early shingles rash, as she does have symptoms consistent with shingles. She does have hyperglycemia, but no anion gap or ketones in her urine. Provided her her evening insulin dosages and her BG improved. Patient does have insulin at home, but has not had his medications adjusted and is in the middle of obtaining a new primary care physician. Will discharge patient home with new primary care physician referral instructions about shingles management. Given very strict return precautions and she understands. - Vital Signs Vital signs: Temp Pulse Resp BP Pulse Ox 98.2 F 82 14 127/76 H 100 12/22/17 01:25 12/22/17 01:25 12/22/17 01:25 12/22/17 01:25 12/22/17 01:25 - Laboratory Result Diagrams: 12/21/17 19:30 12/21/17 19:30 Laboratory results interpreted by me: 12/21/17 12/21/17 12/21/17 19:00 19:15 19:30 RBC 5.32 H RDW 14.2 H Sodium Chloride Glucose POC Glucose > 550 H* Hemoglobin A1c % Urine Glucose (UA) >=500 H 12/21/17 12/21/17 12/22/17 19:30 19:30 00:19 RBC RDW Sodium 132.4 L Chloride 90 L Glucose 581 H* POC Glucose 327 H Hemoglobin A1c % 13.0 H Urine Glucose (UA) - Diagnostic Test Radiology reviewed: Image reviewed, Reports reviewed Radiology results interpreted by me: Right rib x-ray: NAD Discharge - Discharge Clinical Impression: Hyperglycemia, Possible shingles Condition: Stable Disposition: HOME, SELF-CARE Additional Instructions: HYPERGLYCEMIA (HIGH BLOOD SUGAR): You have an abnormally high blood sugar. Not all high blood sugar requires long-term treatment. High blood sugar can be due to medications, , or the stress of illness. (These cases are "borderline diabetes.") If the doctor feels your high blood sugar might resolve with time, you may not require treatment now. It's very important that you follow through, to see if the blood sugar returns to normal levels. Uncontrolled high blood sugar leads to early heart disease, strokes, nerve damage, eye damage, and kidney damage. Call the physician if there is faintness, excess sleepiness, or very rapid breathing. DIABETES: You have an abnormally high blood sugar, suspicious for diabetes. Not all high blood sugar requires long-term treatment. High blood sugar can be due to medications, , or the stress of illness. (These cases are "borderline diabetes.") If the doctor feels your high blood sugar might get better with time, you may not require treatment now. It's very important that you follow through. Uncontrolled high blood sugar leads to early heart disease, strokes, nerve damage, eye damage, and kidney damage. All diabetics should follow a diet designed to control the blood sugar. Overweight diabetics should exercise regularly and lose weight. If this is not sufficient to control the blood sugar, pills or insulin shots are necessary. Younger people who develop diabetes almost always require insulin daily. Home testing of blood sugars or urine sugar is required. Diabetic teaching is available to help you figure insulin doses and monitor the blood sugar. Call the physician if there is faintness, excess sleepiness, or very rapid breathing. If hypoglycemia (LOW blood sugar) develops, symptoms are shakiness, weakness, sweating, and confusion. In this case, you should eat or drink something with sugar at once. INSULIN: Insulin is a natural hormone that lowers blood sugar. Normal blood sugar prevents complications of diabetes. For most diabetics, insulin is the best way to treat the illness. Be sure you know how to measure the insulin correctly. Insulin is measured in "units." There are three types of insulin: N (NPH or long acting), R (regular or short acting), and L (Lente or very long acting). Be sure you are using the right amount of each type. Insulin must be injected into the fat. You can use the abdomen, upper arms , and thighs. Select a different injection site every time. Wipe the site with alcohol before injecting. When first starting insulin, some adjusting of the insulin dose is necessary. Keep a record of each insulin dose and time of injection, and of the blood sugar and the time you test it. Sometimes insulin can make the blood sugar too low. If you become dizzy, sweaty, shaky, or confused, you may be having a hypoglycemic episode. Immediately use juice or some other sweet food. Call the doctor if the symptoms don't go away. FOLLOW-UP CARE: If you have been referred to a physician for follow-up care, call the physician s office for an appointment as you were instructed or within the next two days. If you experience worsening or a significant change in your symptoms, notify the physician immediately or return to the Emergency Department at any time for re-evaluation. Shingles You have shingles. Shingles is caused by the chicken pox virus, The virus has been surviving dormant in a nerve cell since you had chicken pox years ago. The virus has spread down a nerve root to reach the skin. Typically, an band-like area of pain and skin sensitivity develops, then small blisters erupt in the area. Shingles lasts two or three weeks, but sometimes leaves persistent pain. You are contagious -- you can give children chicken pox. But you can't give anyone shingles. Antiviral medicines (such as acyclovir or famciclovir) can help, but the rash usually worsens for about a week. Pain medication is often given if the area hurts. Antihistamines such as Benadryl may be necessary for itching if it does not respond to soda baths and calamine lotion. Sometimes cortisone medicine or nerve-block shots are necessary if pain is severe. If the area remains severely painful as the sores heal, or if you suspect an infection developing in the sores, see your doctor. Prescriptions: Hydrocodone/Acetaminophen [Pampa 5-325 mg Tablet] 1 tab PO Q6H PRN #10 tablet PRN Reason: Lidocaine [Lidoderm 5% (700 mg) Transdermal Patch] 1 patch TP DAILY #10 adh..patch Valacyclovir HCl [Valacyclovir] 1,000 mg PO Q8H 7 Days tablet Forms: Elevated Blood Pressure Referrals: ESEQUIEL YANES MD [[facility]] - Follow up as needed
[2017-12-21] MEDS ORDERED: INSULIN LISPRO 100 UNIT/ML 3 ML VIAL SUBCUT ONE (22:36)
[2017-12-22] MEDS ORDERED: LIDOCAINE 5% (700 MG) TRANSDERMAL ADH..PATCH TP ONE (00:35)
[2017-12-22] MEDS ORDERED: HYDROCODONE/ACETAMINOPHEN 5-325 MG TABLET PO ONE (00:35)
[2017-12-22] MEDS ORDERED: IBUPROFEN 600 MG TABLET PO ONE (00:36)
[2017-12-22] MEDS ORDERED: VALACYCLOVIR HCL 500 MG TABLET PO ONE (00:36)
[2017-12-22 01:26] VITALS: BP 127/76
== END 2017-12-22 01:26 | disposition home or self-care (01) ==
LOC: ER 18:16
DX: E11.65 Type 2 diabetes mellitus with hyperglycemia (principal); E11.42 Type 2 diabetes mellitus with diabetic polyneuropathy; Z79.4 Long term (current) use of insulin; R07.81 Pleurodynia; N64.4 Mastodynia; R21 Rash and other nonspecific skin eruption; Z88.0 Allergy status to penicillin
CPT/HCPCS: 99284; 36415; 82962; 83690; 85025; 80053; 81001; 83036; 82803; 71101; J1815 ×2; J7030

== ENCOUNTER 2019-08-15 09:20 | Emergency (ER) | payer SELFPAY ==
[2019-08-15] MEDS ORDERED: ASPIRIN 81 MG TABLET, CHEWABLE PO ONE (09:30)
--- NOTE | 2019-08-15 09:33 | ER Document Report ---
ED Medical Screen (RME) - General Chief Complaint: Chest Pain Stated Complaint: CHEST PAIN Time Seen by Provider: 08/15/19 09:26 Mode of Arrival: Ambulatory Information source: Patient Notes: 43-year-old female with history of diabetes gallstones high blood pressure high cholesterol presents to the emergency department with left-sided chest pain that radiates up to neck and down her left arm. She reports her left arm feels numb and tingly. Patient reports symptoms started last night while she was at work. She denies diaphoresis shortness of breath. She does report she was nauseated b ut also admits she is nauseated all the time due to history of gallstones and her diabetes. She also reports a little bit of diarrhea but reports that is due to her metformin. Denies history of cardiac disease. Describes the chest pain as a pain, uncomfortable. I have greeted and performed a rapid initial assessment of this patient. A comprehensive ED assessment and evaluation of the patient, analysis of test results and completion of the medical decision making process will be conducted by additional ED providers. TRAVEL OUTSIDE OF THE [place] IN LAST 30 DAYS: No - Related Data Allergies/Adverse Reactions: ampicillin Allergy (Verified 01/29/17 12:33) Penicillins Allergy (Verified 01/29/17 12:24) Past Medical History - Past Medical History Cardiac Medical History: Reports: Hx Hypercholesterolemia, Hx Hypertension Endocrine Medical History: Reports: Hx Diabetes Mellitus Type 2 Renal/ Medical History: Denies: Hx Peritoneal Dialysis Past Surgical History: Reports: Hx Hysterectomy, Hx Tonsillectomy, Hx Tubal Ligation - Immunizations Hx Diphtheria, Pertussis, Tetanus Vaccination: Yes
[2019-08-15 09:34] VITALS: BP 133/92
--- NOTE | 2019-08-15 10:02 | RADIOLOGY REPORT (SQ) ---
EXAM DESCRIPTION: CHEST 2 VIEWS COMPLETED DATE/TIME: 08/15/2019 9:47 am REASON FOR STUDY: chest pain COMPARISON: 08/16/2017 EXAM PARAMETERS: NUMBER OF VIEWS: two views TECHNIQUE: Digital Frontal and Lateral radiographic views of the chest acquired. RADIATION DOSE: NA LIMITATIONS: none FINDINGS: LUNGS AND PLEURA: No opacities, masses or pneumothorax. No pleural effusion. MEDIASTINUM AND HILAR STRUCTURES: No masses or contour abnormalities. HEART AND VASCULAR STRUCTURES: Heart normal size. No evidence for failure. BONES: No acute findings. HARDWARE: None in the chest. OTHER: No other significant finding. IMPRESSION: NO ACUTE RADIOGRAPHIC FINDING IN THE CHEST. TECHNICAL DOCUMENTATION: JOB ID: [id number] 2010 [employer] [place]- All Rights Reserved Reading location - IP/workstation name: [email or web address]
[2019-08-15 11:19] LABS: ABSOLUTE EOSINOPHILS # (AUTO) 0.5 10^3/uL (0.0-0.6); ABSOLUTE LYMPHOCYTES (AUTO) 2.3 10^3/uL (0.5-4.7); ABSOLUTE MONOCYTES (AUTO) 0.4 10^3/uL (0.1-1.4); BASOPHILS % (AUTO) 0.7 % (0-2); EOSINOPHILS % (AUTO) 8.1 % (0-6); HEMATOCRIT 37.7 % (36.0-47.0); LYMPHOCYTES % (AUTO) 36.6 % (13-45); MEAN CORPUSCULAR HGB CONC 34.6 g/dL (32.0-36.0); MEAN CORPUSCULAR VOLUME 81 fl (80-97); MONOCYTES % (AUTO) 6.3 % (3-13); PLATELET COUNT 373 10^3/uL (150-450); RED BLOOD COUNT 4.65 10^6/uL (3.72-5.28); RED CELL DISTRIBUTION WIDTH 14.4 % (11.5-14.0); SEGMENTED NEUTROPHILS % (AUTO) 48.3 % (42-78); TOTAL CELLS COUNTED % (AUTO) 100 %; WHITE BLOOD COUNT 6.2 10^3/uL (4.0-10.5)
[2019-08-15 11:20] LABS: ALBUMIN 4.1 g/dL (3.5-5.0); ALKALINE PHOSPHATASE 212 U/L (38-126); ANION GAP 12 (5-19); ASPARTATE AMINO TRANSFERASE 29 U/L (14-36); BILIRUBIN,DIRECT 0.3 mg/dL (0.0-0.4); BILIRUBIN,TOTAL 0.4 mg/dL (0.2-1.3); BLOOD UREA NITROGEN 10 mg/dL (7-20); CALCIUM 9.3 mg/dL (8.4-10.2); CARBON DIOXIDE 27 mmol/L (22-30); CHLORIDE 99 mmol/L (98-107); GLUCOSE 253 mg/dL (75-110); POTASSIUM 3.5 mmol/L (3.6-5.0)
[2019-08-15] MEDS ORDERED: KETOROLAC TROMETHAMINE INJ/PF 30 MG/1 ML SDV IV ONE (12:22)
--- NOTE | 2019-08-15 16:42 | ER Document Report ---
Entered by CHANTEL JEAN BAPTISTE SCRIBE 08/15/19 1048 Acting as scribe for:PABLO GONZALEZ MD ED General - General Chief Complaint: Chest Pain Stated Complaint: CHEST PAIN Time Seen by Provider: 08/15/19 09:26 Mode of Arrival: Ambulatory Information source: Patient Notes: This 43 year old female patient presents to the emergency department today with complaints of chest pain. Patient states her chest pain is traveling to her left shoulder and down her left arm. Patient states her chest pain is sharp, intermittent, and her chest is tender. Patient states she coughs frequently and this has been occurring the past 2 months. Patient states she has seen Doctor's for similar chest pain and was told it is muscolskeletal pain. Patient states there is pain in her lower back. TRAVEL OUTSIDE OF THE [place] IN LAST 30 DAYS: No - Related Data Allergies/Adverse Reactions: ampicillin Allergy (Verified 01/29/17 12:33) Penicillins Allergy (Verified 01/29/17 12:24) Past Medical History - General Information source: Patient - Social History Smoking Status: Never Smoker Cigarette use (# per day): No Family History: Reviewed & Not Pertinent Patient has suicidal ideation: No Patient has homicidal ideation: No - Past Medical History Cardiac Medical History: Reports: Hx Hypercholesterolemia, Hx Hypertension Endocrine Medical History: Reports: Hx Diabetes Mellitus Type 2 Past Surgical History: Reports: Hx Hysterectomy, Hx Tonsillectomy, Hx Tubal Ligation - Immunizations Hx Diphtheria, Pertussis, Tetanus Vaccination: Yes Review of Systems - Review of Systems Constitutional: No symptoms reported EENT: No symptoms reported Cardiovascular: See HPI, Chest pain Respiratory: See HPI, Cough Gastrointestinal: No symptoms reported Genitourinary: No symptoms reported Female Genitourinary: No symptoms reported Musculoskeletal: See HPI, Back pain Skin: No symptoms reported Hematologic/Lymphatic: No symptoms reported Neurological/Psychological: No symptoms reported -: Yes All other systems reviewed and negative Physical Exam - Vital signs Vitals: Temp Pulse Resp BP Pulse Ox 98.3 F 88 18 133/92 H 99 08/15/19 09:27 08/15/19 09:27 08/15/19 09:27 08/15/19 09:27 08/15/19 09:27 - General General appearance: Appears well, Alert - HEENT Head: Normocephalic, Atraumatic Eyes: Normal Pupils: PERRL Neck: Other - Tenderness with palpation to the cervical muscles. - Respiratory Respiratory status: No respiratory distress Breath sounds: Normal Chest palpation: Tender - Tenderness with palpation to the left costal sternal border. - Cardiovascular Rhythm: Regular Heart sounds: Normal auscultation Murmur: No - Abdominal Inspection: Normal Distension: No distension Bowel sounds: Normal Tenderness: Nontender - Back Back: Normal - Extremities General upper extremity: Normal inspection. No: Edema General lower extremity: Normal inspection. No: Edema - Neurological Neuro grossly intact: Yes Cognition: Normal Orientation: AAOx4 - Psychological Associated symptoms: Normal affect, Normal mood - Skin Skin Temperature: Warm Skin Moisture: Dry Skin Color: Normal Course - Re-evaluation Re-evalutation: 08/15/19 12:22 Patient resting comfortably not showing any signs of distress. - Vital Signs Vital signs: Temp Pulse Resp BP Pulse Ox 98.3 F 88 18 133/92 H 97 08/15/19 09:27 08/15/19 09:27 08/15/19 09:27 08/15/19 09:27 08/15/19 10:50 - Laboratory Result Diagrams: 08/15/19 10:43 08/15/19 10:43 Laboratory results interpreted by me: 08/15/19 08/15/19 10:43 10:43 RDW 14.4 H Eos % (Auto) 8.1 H Potassium 3.5 L Glucose 253 H Alkaline Phosphatase 212 H Laboratory survey shows a blood sugar 253. Patient is a known diabetic. Also patient's creatinine troponin is 0.012. Patient does not intend to wait for another troponin test. Patient is EKG has not changed in the past 2years and there is no acute ST changes that are different. Most likely patient has musculoskeletal skeletal chest wall pain. - Diagnostic Test Radiology reviewed: Image reviewed, Reports reviewed Radiology results interpreted by me: 08/15/19 12:24 Chest x-ray 1 view no acute process no cardiopulmonary disease noted. - EKG Interpretation by Me Additional EKG results interpreted by me: 08/15/19 12:24 Twelve-lead EKG done today at 925 shows a normal sinus rhythm rate of 81 left anterior fascicular block and borderline T wave abnormalities in the inferior leads. Patient had an EKG done on 08/16/2017 and had the same EKG as as of today there is no any acute changes in EKG in the past 2 years. Discharge - Discharge Clinical Impression: Chest wall pain, Hyperglycemia due to type 2 diabetes mellitus Condition: Stable Disposition: HOME, SELF-CARE Instructions: Anti-Inflammatory Medication ([facility]), Chest Wall Pain ([facility]) Additional Instructions: Hyperglycemia (High Blood Sugar) You have an abnormally high blood sugar. Not all high blood sugar requires long-term treatment. High blood sugar can be due to medications, , or the stress of illness. (These cases are "borderline diabetes.") If the doctor feels your high blood sugar might resolve with time, you may not require treatment now. You will be scheduled for further evaluation. It's very important that you follow through, to see if the blood sugar returns to normal levels. Uncontrolled high blood sugar leads to early heart disease, strokes, nerve damage, eye damage, and kidney damage. Call the physician if there is faintness, excess sleepiness, or very rapid breathing.Chest Wall Pain Your chest pain has been diagnosed as coming from the chest wall. This is often caused by straining the muscles or joints in the chest during physical activity, direct trauma, coughing, or vigorous vomiting. Persons with arthritis are especially prone to this type of pain, due to inflammation of the cartilage joints near the breast bone. Occasionally, no cause can be found. Rest from strenuous physical activity. This kind of chest pain is usually made worse by movement of the chest. Depending on the symptoms, we may prescribe medicine for pain, muscle relaxation, and antiinflammatory effects. If the pain is new, and seems to be due to muscle strain, cold packs can help. Otherwise, apply gentle warmth to the painful area for 15 minutes every hour or two. You should contact the doctor immediately if things change. Further evaluation is needed if you develop a fever or cough, if the nature of the pain changes, or if you become short of breath. Prescriptions: Ibuprofen [Motrin 800 mg Tablet] 800 mg PO Q8H PRN #30 tab PRN Reason: pain I personally performed the services described in the documentation, reviewed and edited the documentation which was dictated to the scribe in my presence, and it accurately records my words and actions.
--- NOTE | 2019-08-16 00:27 | EKG REPORT ---
SEVERITY:- ABNORMAL ECG - SINUS RHYTHM LEFT ANTERIOR FASCICULAR BLOCK BORDERLINE T ABNORMALITIES, INFERIOR LEADS : Confirmed by: Wilder Flores 16-Aug-2019 00:26:41
== END 2019-08-15 12:48 | disposition home or self-care (01) ==
LOC: ER 09:20
DX: R07.89 Other chest pain (principal); E11.65 Type 2 diabetes mellitus with hyperglycemia; I10 Essential (primary) hypertension; E78.00 Pure hypercholesterolemia, unspecified; Z88.0 Allergy status to penicillin; Z98.51 Tubal ligation status
CPT/HCPCS: 93005; 99285; 96374; 36415; 83690; 85025; 80053; 84484; 71046; 93010; J1885

== ENCOUNTER 2019-09-12 13:59 | Emergency (ER) | payer OTHER ==
--- NOTE | 2019-09-12 16:03 | ER Document Report ---
Entered by CHANTEL JEAN BAPTISTE SCRIBE 09/12/19 1545 Acting as scribe for:PABLO GONZALEZ MD ED General - General Chief Complaint: Insect Bite Stated Complaint: INSECT BITE Time Seen by Provider: 09/12/19 15:20 Information source: Patient Notes: This 43 year old female patient presents to the emergency department today with complaints of what she thinks is bed bug bites. 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 Patient states she has bug bites on both of her arms and left cheek. Patient states she is visiting the ED because her supervisor [employer] needed it to be clarified if she had bed bug bites. Patient states she has been using Benadryl cream on her arms, which relieves the itching until the cream drys out. Patient denies any fever, chills, nausea, or vomiting. TRAVEL OUTSIDE OF THE [place] IN LAST 30 DAYS: No - Related Data Allergies/Adverse Reactions: ampicillin Allergy (Verified 01/29/17 12:33) Penicillins Allergy (Verified 01/29/17 12:24) Past Medical History - General Information source: Patient - Social History Smoking Status: Never Smoker Cigarette use (# per day): No Family History: Reviewed & Not Pertinent - Past Medical History Cardiac Medical History: Reports: Hx Hypercholesterolemia, Hx Hypertension Endocrine Medical History: Reports: Hx Diabetes Mellitus Type 2 Past Surgical History: Reports: Hx Hysterectomy, Hx Tonsillectomy, Hx Tubal Ligation - Immunizations Hx Diphtheria, Pertussis, Tetanus Vaccination: Yes Review of Systems - Review of Systems Constitutional: See HPI. denies: Chills, Fever EENT: No symptoms reported Cardiovascular: No symptoms reported Respiratory: No symptoms reported Gastrointestinal: See HPI. denies: Nausea, Vomiting Genitourinary: No symptoms reported Female Genitourinary: No symptoms reported Musculoskeletal: No symptoms reported Skin: See HPI, Other - Bug bites. Hematologic/Lymphatic: No symptoms reported Neurological/Psychological: No symptoms reported -: Yes All other systems reviewed and negative Physical Exam - Vital signs Vitals: Temp Pulse Resp BP Pulse Ox 98.8 F 113 H 16 139/98 H 98 09/12/19 14:07 09/12/19 14:07 09/12/19 14:07 09/12/19 14:07 09/12/19 14:07 - General General appearance: Appears well, Alert - HEENT Head: Other - Discrete small red dots on the skin of the left cheek. Skin is dry and nontender. Eyes: Normal Pupils: PERRL - Respiratory Respiratory status: No respiratory distress Chest status: Nontender Breath sounds: Normal Chest palpation: Normal - Cardiovascular Rhythm: Regular Heart sounds: Normal auscultation Murmur: No - Abdominal Inspection: Normal Distension: No distension Bowel sounds: Normal Tenderness: Nontender - Extremities General upper extremity: Other - Discrete small red dots on the skin of the general upper extremities bilateraly. Skin is dry and nontender. General lower extremity: Normal inspection. No: Edema - Neurological Neuro grossly intact: Yes Cognition: Normal Orientation: AAOx4 - Psychological Associated symptoms: Normal affect, Normal mood - Skin Skin Temperature: Warm Skin Moisture: Dry Skin Color: Normal Course - Re-evaluation Re-evalutation: 09/12/19 15:53 Patient is hemodynamically stable not showing any signs of shock or vascular compromise. Patient reports insect bites on upper extremities. Admits to itching at the sites.. - Vital Signs Vital signs: Temp Pulse Resp BP Pulse Ox 98.8 F 113 H 16 139/98 H 98 09/12/19 14:07 09/12/19 14:07 09/12/19 14:07 09/12/19 14:07 09/12/19 14:07 Discharge - Discharge Clinical Impression: Insect bite, Pruritus Condition: Stable Disposition: HOME, SELF-CARE Additional Instructions: Insect Bites You have been bitten by an insect. These bites can cause two types of swelling: an initial swelling due to insect saliva or injected poison, and a late reaction due to your body's allergic reaction. This initial local reaction may be uncomfortable but is not dangerous. Often there's an itchy "hive" at the bite location. This is treated with antihistamines, cold compresses, and resting the affected body part. The later reaction often develops about the second day. The entire area becomes very swollen, red, itchy, and tender. This is an allergic reaction. Your body is attacking the leftover insect saliva or venom. This type of allergy is unpleasant, but not dangerous. We treat this swelling with cortisone-type medicine. Sometimes we use antibiotics if we're worried about infection. Antihistamines help with the itch. If you develop a fever, chills, a red streak, or swollen glands in the area of the bite, infection may be starting. Return at once. Prescriptions: Triamcinolone Acetonide [Aristocort 0.025% Cream] 1 applic TP BID #30 gram I personally performed the services described in the documentation, reviewed and edited the documentation which was dictated to the scribe in my presence, and it accurately records my words and actions.
[2019-09-12 16:28] VITALS: BP 127/84
== END 2019-09-12 16:33 | disposition home or self-care (01) ==
LOC: ER 13:59
DX: S40.862A Insect bite (nonvenomous) of left upper arm, initial encounter (principal); S40.861A Insect bite (nonvenomous) of right upper arm, initial encounter; L29.8 Other pruritus; W57.XXXA Bitten or stung by nonvenomous insect and other nonvenomous arthropods, initial encounter
CPT/HCPCS: 99281